=== PATIENT | female | born 2000 | race African-American/Black ===

== ENCOUNTER 2018-11-23 12:48 | Emergency (ER) | payer SELFPAY ==
[~2018-11-23] VITALS: Ht 165.1 cm; Wt 67.0 kg
[2018-11-23 13:02] VITALS: BP 118/42
== END 2018-11-23 18:31 | disposition left against medical advice (07) ==
LOC: ER 18:21
DX: Z53.21 Procedure and treatment not carried out due to patient leaving prior to being seen by health care provider (principal)